=== PATIENT | male | born 1955 | race Asian ===

== ENCOUNTER 2017-08-18 18:06 | Inpatient (IN) | payer MEDICAID ==
[~2017-08-18] VITALS: Ht 154.9 cm; Wt 54.0 kg
[2017-08-18 18:09] VITALS: BP 124/69
[2017-08-18] MEDS ORDERED: FORM11 (18:09)
--- NOTE | 2017-08-18 18:14 | NUR ---
PT PRESENTS TO ER W/C/O SOB X2 DAYS. HX ASTHMA. DENIES N/V/D; SKIN IS PINK/WARM/DRY; AAOX4 WITH EVEN AND STEADY GAIT; LUNGS CLEAR BL; HR EVEN AND REGULAR; PT DENIES ANY FEVER, CP, OR COUGH AT THIS TIME; PATIENT STATES PAIN OF 0/10 AT THIS TIME; VSS; PATIENT POSITIONED FOR COMFORT; HOB ELEVATED; BEDRAILS UP X2; BED DOWN. ER MD MADE AWARE OF PT STATUS.
[2017-08-18] MEDS ORDERED: ALBUTEROL SULFATE/IPRATROPIU 3 ML SOL IH ONE (18:35)
[2017-08-18] MEDS ORDERED: AZITHROMYCIN 500 MG in DEXTROSE 5% 250 ML IV ONE (18:35)
[2017-08-18] MEDS ORDERED: cefTRIAXone 1,000 MG in DEXT 5% MINI-BAG PLUS 50 ML IV ONE (18:35)
[2017-08-18] MEDS ORDERED: methylPREDNISolone SS 125 MG/2 ML VIAL IVP ONE (18:40)
[2017-08-18] MEDS ORDERED: AZITHROMYCIN 500 MG INJ VIAL IV ONE (18:57)
[2017-08-18] MEDS ORDERED: cefTRIAXone 1,000 MG VIAL ONE (18:57)
[2017-08-18 18:58] LABS: APPEARANCE,URINE HAZY (CLEAR); BILIRUBIN,URINE NEGATIVE (NEGATIVE); BLOOD, URINE 3+ (NEGATIVE); COLOR,URINE YELLOW (YELLOW); LEUKOCYTE ESTERASE ,URINE 3+ (NEGATIVE); NITRITE, URINE NEGATIVE (NEGATIVE); UGLUCOSE NEGATIVE (NEGATIVE)
[2017-08-18] MEDS ORDERED: NACL 0.9% 1,000 ML IV ONE (19:05)
--- NOTE | 2017-08-18 19:05 | NUR ---
REPORT RECEIVED FROM CHRISTINA PURI
[2017-08-18] MEDS ORDERED: IBUPROFEN 600 MG TAB PO ONE (19:10)
[2017-08-18 19:16] LABS: HEMOGLOBIN 13.8 g/dL (12.0-18.0); MEAN CORPUSCULAR HEMOGLOBIN 26 pg (27-31); MEAN CORPUSCULAR HGB CONC 32 g/dL (33-37); MEAN CORPUSCULAR VOLUME 82 fL (80-94); PLATELET COUNT (AUTO) 147 K/uL (140-450); RED BLOOD CELL COUNT(AUTO) 5.23 MIL/uL (4.20-6.10); RED CELL DISTRIBUTION WIDTH 13.5 % (11.6-13.7)
[2017-08-18 19:17] LABS: RBC,URINE 3-10 (FEW) /HPF (0-5); WBC,URINE TOO MANY TO COUNT /HPF (0-5)
[2017-08-18] MEDS ORDERED: IBUPROFEN 600 MG TAB ONE (19:19)
[2017-08-18 19:21] LABS: ANION GAP 11.4 (8-16); CARBON DIOXIDE 26.1 mmol/L (21-32); CREATININE 1.1 mg/dL (0.7-1.3); POTASSIUM 3.5 mmol/L (3.5-5.1)
--- NOTE | 2017-08-18 19:22 | NUR ---
REPORT GIVEN TO CHRISTINA PALMA
[2017-08-18 19:27] LABS: ALBUMIN 3.3 g/dL (3.4-5.0); TOTAL BILIRUBIN 0.9 mg/dL (0.0-1.0)
[2017-08-18] MEDS ORDERED: NACL 0.9% 1,500 ML IV ONE (19:30)
[2017-08-18 19:31] LABS: LYMPHOCYTES % (MANUAL) 5 % (20-46); MONOCYTES % (MANUAL) 2 % (5-12)
--- NOTE | 2017-08-18 20:00 | NUR ---
Patient appears to be resting comfortably in bed. Vital Signs within normal limits. Respirations even and unlabored.
[2017-08-18] MEDS ORDERED: ALBUTEROL 0.083% 2.5 MG/3 ML NEBU INH PRN (20:30)
[2017-08-18] MEDS ORDERED: LORazepam 2 MG/ML VIAL IVP PRN (20:30)
[2017-08-18] MEDS ORDERED: NACL 0.9% 1,000 ML IV SCH (20:30)
[2017-08-18] MEDS ORDERED: methylPREDNISolone SS 40 MG in WATER STERILE 1 ML IV SCH (20:30)
[2017-08-18] MEDS ORDERED: ONDANSETRON 4 MG/2 ML VIAL IVP PRN (20:30)
[2017-08-18] MEDS ORDERED: IBUP-2213 PO (20:32)
[2017-08-18] MEDS ORDERED: AMLO10TA PO (20:32)
[2017-08-18] MEDS ORDERED: MEX2.5 (20:32)
--- NOTE | 2017-08-18 21:08 | NUR ---
Patient will be admitted to care of DR LYNN. Admited to MED SURG. Will go to room 106B. Belongings list completed. Report to CHRISTINA SPAIN.
--- NOTE | 2017-08-18 21:25 | NUR ---
PATIENT ADMITTED TO THE UNIT FROM ED VIA GURNEY. PT IS FOR 23 HOUR OBSERVATION. AAOX4. ON O2 AT 2 L/MIN VIA NC. NO DISTRESS NOTED. IV TO LEFT FA #20G PATENT AND INTACT. REDNESS TO LEFT ARM AND BACK D/T COINING. ORIENTED PT TO ROOM AND CALL LIGHT. PT'S AT BEDSIDE. DISCUSSED PLAN OF CARE. PT AND VERBALIZED UNDERSTANDING. CALL LIGHT WITHIN REACH. WILL CONTINUE TO MONITOR.
--- NOTE | 2017-08-18 21:26 | NUR ---
PATIENT HAS 900 ML IV FLUIDS SODIUM CHLORIDE 0.9% AT 100 ML/HR
[2017-08-18 21:30] VITALS: BP 122/71
--- NOTE | 2017-08-18 22:30 | NUR ---
TYLENOL 650 MG TAB GIVEN FOR LOWER ABDOMINAL PAIN.
[2017-08-18] MEDS: ACETAMINOPHEN 325 MG TAB PO PRN (22:39)
[2017-08-19] VITALS: BP 126/70
--- NOTE | 2017-08-19 00:35 | NUR ---
PT LYING IN BED COMFORTABLY. NO C/O PAIN. NO DISTRESS NOTED. CALL LIGHT WITHIN REACH.
--- NOTE | 2017-08-19 03:36 | NUR ---
PT SLEEPING. AT BEDSIDE. NO SIGNS OF DISTRESS. CALL LIGHT WITHIN REACH.
[2017-08-19] MEDS: ACETAMINOPHEN 325 MG TAB PO PRN (04:45)
[2017-08-19] MEDS ORDERED: methylPREDNISolone SS 125 MG/2 ML VIAL IVP SCH (05:00)
--- NOTE | 2017-08-19 06:15 | NUR ---
IV FLUIDS COMPLETED. NO NEW ORDER.
[2017-08-19 06:50] LABS: HEMATOCRIT 44.9 % (36-52); HEMOGLOBIN 14.5 g/dL (12.0-18.0); MEAN CORPUSCULAR HEMOGLOBIN 27 pg (27-31); MEAN CORPUSCULAR HGB CONC 32 g/dL (33-37); MEAN CORPUSCULAR VOLUME 84 fL (80-94); PLATELET COUNT (AUTO) 138 K/uL (140-450); RED BLOOD CELL COUNT(AUTO) 5.35 MIL/uL (4.20-6.10); RED CELL DISTRIBUTION WIDTH 13.9 % (11.6-13.7); WHITE BLOOD COUNT (AUTO) 25.6 K/uL (4.8-10.8)
[2017-08-19 07:05] LABS: CARBON DIOXIDE 25.8 mmol/L (21-32); CREATININE 1.2 mg/dL (0.7-1.3); POTASSIUM 3.8 mmol/L (3.5-5.1)
--- NOTE | 2017-08-19 07:20 | NUR ---
ENDORSED PT TO DAY SHIFT NURSE. PT IN STABLE CONDITION.
--- NOTE | 2017-08-19 07:22 | NUR ---
RECEIVED REPORT FROM BEDSIDE RN. PT RESTING IN BED. AAOX4. NO S/S OF ACUTE DISTRESS. PT DENIES PAIN. IV SITE PATENT AND INTACT. ON ROOM AIR. LEFT ARM AND BACK REDNESS NOTED. PLAN OF CARE DISCUSSED WITH PT. PT VERBALIZED UNDERSTANDING. CALL LIGHT WITHIN REACH. SAFETY MEASURES ENSURED. WILL CONTINUE TO MONITOR.
[2017-08-19 08:00] VITALS: BP 104/65
--- NOTE | 2017-08-19 08:55 | NUR ---
DR. LYNN IN TO SEE PT. PLAN OF CARE DISCUSSED. BLADDER SCAN DONE. 520 ML. PT STATES HE JUST VOIDED. PER DR. LYNN INSERT HARGROVE.
[2017-08-19] MEDS: ASPIRIN 81 MG TAB.CHEW PO SCH (08:58)
[2017-08-19] MEDS ORDERED: TAMSULOSIN 0.4 MG CAP PO SCH (09:00)
[2017-08-19] MEDS: ENOXAPARIN 40 MG/0.4 ML SYR SUBQ SCH (09:05)
[2017-08-19 09:23] LABS: LYMPHOCYTES % (MANUAL) 7 % (20-46); MONOCYTES % (MANUAL) 6 % (5-12)
--- NOTE | 2017-08-19 09:52 | NUR ---
PATIENT HAS BEEN SCREENED AND CATEGORIZED HIGH NUTRITION RISK. PATIENT WILL BE SEEN WITHIN 1-2 DAYS OF ADMISSION. 08/19/17-08/20/[address]
--- NOTE | 2017-08-19 10:28 | NUR ---
CALLED [facility] AND SPOKE WITH ABDIRAHMAN, [phone]. SHE SAID TO FIND OUT IF THIS PATIENT IS STABLE FOR TRANSFER TO CONTRACTED FACILITY. I SPOKE WITH DR. LYNN AND SHE WROTE THE ORDER FOR TRANSFER. FAXED INITIAL REVIEW TO [facility] [phone] I CALLED ABDIRAHMAN AND INFORMED HER OF ORDER FOR TRANSFER. SHE WILL CALL ME BACK WITH FACILITY. THE AUTH FOR [facility] TRANSPORT IS [id number].
--- NOTE | 2017-08-19 11:48 | NUR ---
PT RESTING IN BED. NO S/S OF ACUTE DISTRESS. PT DENIES PAIN. CALL LIGHT WITHIN REACH. SAFETY MEASURES ENSURED. WILL CONTINUE TO MONITOR.
[2017-08-19] MEDS: methylPREDNISolone SS 125 MG/2 ML VIAL IVP SCH ×2 (12:06→20:58)
--- NOTE | 2017-08-19 13:22 | NUR ---
08/19/17 RD INITIAL ASSESSMENT COMPLETED PLEASE REFER TO NUTRITION ASSESSMENT UNDER CARE ACTIVITY FOR ESTIMATED NUTRITIONAL NEEDS. 1. CONTINUE REGULAR DIET 2. RD TO FOLLOW UP WITHIN 2-3 DAYS; HIGH RISK MARIELA ANN RD
--- NOTE | 2017-08-19 15:46 | NUR ---
RECEIVED A CALL EARLIER FROM ABDIRAHMAN FROM [facility] [employer] SHE IS STILL WAITING FOR HER PHYSICIAN TO SPEAK WITH DR. LYNN. I CALL ABDIRAHMAN FROM [facility] AND GAVE HER THE PHONE NUMBER TO THE FLOOR IF THEY ARE GOING TO TRANSFER TIS PATIENT.
[2017-08-19 16:00] VITALS: BP 104/68
--- NOTE | 2017-08-19 16:11 | NUR ---
EARLIER I RECEIVED A CALL FROM ABDIRAHMAN FROM [facility]. SHE SAID TO HAVE DR. LYNN CALL DR. ANGEL AT [phone]. INFORMATION TEXTED TO DR. LYNN BY LUKE VASQUEZ CM DIRECTOR.
--- NOTE | 2017-08-19 17:07 | NUR ---
PT RESTING IN BED. NO S/S OF ACUTE DISTRESS. PT DENIES PAIN. CALL LIGHT WITHIN REACH. SAFETY MEASURES ENSURED. WILL CONTINUE TO MONITOR.
--- NOTE | 2017-08-19 19:06 | NUR ---
ENDORSED PLAN OF CARE TO NIGHT RN. PT REMAINS STABLE.
--- NOTE | 2017-08-19 19:07 | NUR ---
RECEIVED REPORT FROM DAY NURSE AT THE BEDSIDE, PT IN STABLE CONDITION. NO S/S OF DISTRESS NOTED. PT IS AAOX4, ON RA. IV TO L FA 20 G SL, PATENT AND INTACT. SKIN IS INTACT BUT REDNESS ON THE L ARM AND BACK FROM COINING PER PT. RESPIRATIONS ARE EVEN AND UNLABORED. BOWEL SOUNDS PRESENT. INITIAL ASSESSMENT COMPLETED. PLAN OF CARE DISCUSSED WITH PT, VERBALIZED UNDERSTANDING. ALL SAFETY PRECAUTIONS MET, CALL LIGHT WITHIN REACH, WILL CONTINUE TO MONITOR.
--- NOTE | 2017-08-19 20:58 | NUR ---
MEDICATION GIVEN WITH EDUCATION. PT VERBALIZED UNDERSTANDING. CALL LIGHT WITHIN REACH. SAFETY MEASURES ENSURED. WILL CONTINUE TO MONITOR.
[2017-08-20] VITALS: BP 108/65
--- NOTE | 2017-08-20 | NUR ---
PT VS STABLE, NO S/S OF DISTRESS NOTED. PT RESTING COMFORTABLY IN BED. ALL SAFETY PRECAUTIONS MET, WILL CONTINUE TO MONITOR
--- NOTE | 2017-08-20 04:30 | NUR ---
CATHETER CARE PROVIDED. HARGROVE PATENT AND INTACT. ALL SAFETY PRECAUTIONS MET, CALL LIGHT WITHIN REACH
[2017-08-20] MEDS: methylPREDNISolone SS 125 MG/2 ML VIAL IVP SCH (04:37)
--- NOTE | 2017-08-20 07:16 | NUR ---
GAVE REPORT TO AM NURSE AT THE BEDSIDE FOR CONTINUITY OF CARE. PT IN STABLE CONDITION. NO S/S OF DISTRESS NOTED
--- NOTE | 2017-08-20 07:18 | NUR ---
RECEIVED REPORT FROM NIGHT RN. PT RESTING IN BED. AAOX4, NO S/S OF ACUTE DISTRESS. PT DENIES PAIN. IV SITE PATENT AND INTACT. HARGROVE CATHETER PATENT. PLAN OF CARE DISCUSSED, PT VERBALIZED UNDERSTANDING. CALL LIGHT WITHIN REACH. SAFETY MEASURES ENSURED. WILL CONTINUE TO MONITOR.
[2017-08-20 08:04] VITALS: BP 123/66
[2017-08-20] MEDS ORDERED: TAMSULOSIN 0.4 MG CAP PO SCH (08:30)
[2017-08-20] MEDS: ASPIRIN 81 MG TAB.CHEW PO SCH (09:21)
[2017-08-20] MEDS: ENOXAPARIN 40 MG/0.4 ML SYR SUBQ SCH (09:22)
--- NOTE | 2017-08-20 09:29 | NUR ---
DUE MEDICATIONS GIVEN WITH TEACHING, PT VERBALIZED UNDERSTANDING OF MEDS, CALL LIGHT WITHIN REACH, WILL CONT TO MONITOR.
[2017-08-20] MEDS ORDERED: TAMS0.4C96 PO (09:47)
[2017-08-20] MEDS ORDERED: LEVO500T2 PO (09:47)
[2017-08-20] MEDS ORDERED: AZIT250T3 PO (09:47)
[2017-08-20] MEDS ORDERED: PRED10TA6 PO (09:52)
--- NOTE | 2017-08-20 11:01 | NUR ---
JOELLEN NOTE: CONCURRENT REVIEW FAXED TO [facility] [phone] # [phone] CM SONNA EXT [phone]. SPOKE WITH JOELLEN GARY OF [facility] PH# [phone] JOELLEN SONNA EXT [phone] AND SHE SAID THAT NO NEED TO TRANSFER PATIENT TO THEIR CONTRACTED HOSPITAL IF PATIENT WILL BE DISCHARGED TODAY. PER [facility] JOELLEN GARY, IF PATIENT WILL NEED HOME HEALTH, TO CONTACT ANY OF THE FOLLOWING HOME HEALTHS THEY ARE CONTRACTED WITH: *[facility], ATTN: LYRIC, PH# [phone] FAX# [phone] *[facility], ATTN: SOFIA, PH# [phone] FAX# [phone] * [facility], ATTN: YOSEPH, PH# [phone] FAX# [phone]
--- NOTE | 2017-08-20 11:14 | NUR ---
HARGROVE CATH DISCONTINUED, WILL MONITOR FOR URINE OUTPUT.
[2017-08-20 11:27] VITALS: BP 123/66
--- NOTE | 2017-08-20 13:56 | NUR ---
PT ABLE TO VOID, PT DENIES ANY PAIN DURING VOID, 300ML VOIDED.
--- NOTE | 2017-08-20 14:16 | NUR ---
PT CLEARED FOR DISCHARGE. DISCHARGE INSTRUCTIONS PROVIDED. PT VERBALIZED UNDERSTANDING. IV TAKEN OUT TIP INTACT. WRISTBANDS CUT, ALL PAPERWORK SIGNED. PRESCRIPTION GIVEN TO PT. NO S/S OF ACUTE DISTRESS. PT DENIES PAIN. PT'S AT BEDSIDE. PT AMBULATED TO [facility].
[2017-08-21] MEDS ORDERED: methylPREDNISolone SS 125 MG/2 ML VIAL IVP SCH (09:00)
== END 2017-08-20 14:24 | disposition home or self-care (01) | DRG 720 ==
LOC: MED 18:06 → MTU 20:36 → OBSVTOIN 08-19 09:48
PROVIDERS: ADMIT Hospitalist; ATTEND Hospitalist
DX: A41.50 Gram-negative sepsis, unspecified (principal); E44.1 Mild protein-calorie malnutrition; I10 Essential (primary) hypertension; N40.1 Benign prostatic hyperplasia with lower urinary tract symptoms; R33.8 Other retention of urine; J45.901 Unspecified asthma with (acute) exacerbation; N39.0 Urinary tract infection, site not specified; B96.89 Other specified bacterial agents as the cause of diseases classified elsewhere; E88.09 Other disorders of plasma-protein metabolism, not elsewhere classified; Z68.22 Body mass index [BMI] 22.0-22.9, adult; Z79.899 Other long term (current) drug therapy
CPT/HCPCS: 96365; 96367; 96375; 99291; G0378; 36415; 36600; 71010; 80048; 80053; 81001; 82803; 83605; 84484; 85025; 87040; 87077; 87081; 87086; 87186; 93005; 94640; J0456; J0696; J1650; J2930; J7030; J7060; J7613; J7620; Q0092

== ENCOUNTER 2018-12-26 10:07 | Emergency (ER) | payer MEDICAID ==
[~2018-12-26] VITALS: Ht 162.6 cm; Wt 57.2 kg
[~2018-12-26 10:07] MED LIST: AMLO10TA PO; AZIT250T3 PO; FORM11; IBUP-2213 PO; LEVO500T2 PO; MEX2.5; PRED10TA6 PO; TAMS0.4C96 PO
[2018-12-26 10:25] VITALS: BP 133/70
[2018-12-26] MEDS ORDERED: ALBUTEROL SULFATE/IPRATROPIU 3 ML SOL IH ONE (10:25)
--- NOTE | 2018-12-26 10:31 | NUR ---
CAME TO ED WITH C/O SOB. INSPIRATORY AND EXPIRATORY WHEEZING TO BILATERAL UPPER LOBES. TACHYCARDIC. NON-PRODUCTIVE COUGH. PLACED ON 2L VIA NASAL CANNULA. MD NOTIFIED. WILL CONTINUE TO MONITOR.
--- NOTE | 2018-12-26 11:08 | NUR ---
Patient being evaluated by physician at bedside.
[2018-12-26 11:27] VITALS: BP 133/70
--- NOTE | 2018-12-26 11:28 | NUR ---
Patient discharged with v/s stable. Written and verbal after care instructions given and explained. Patient alert, oriented and verbalized understanding of instructions. Ambulatory with steady gait. All questions addressed prior to discharge. ID band removed. Patient advised to follow up with PMD. Rx of Predisone given. Patient educated on indication of medication including possible reaction and side effects. Opportunity to ask questions provided and answered.
== END 2018-12-26 11:28 | disposition home or self-care (01) ==
LOC: MED 10:07
DX: J45.901 Unspecified asthma with (acute) exacerbation (principal); I10 Essential (primary) hypertension; Z79.899 Other long term (current) drug therapy
CPT/HCPCS: 94640; 99283; J7620

== ENCOUNTER 2018-12-27 19:35 | Emergency (ER) | payer MEDICAID ==
[~2018-12-27] VITALS: Ht 162.6 cm; Wt 56.0 kg
[2018-12-27 19:46] VITALS: BP 122/87
--- NOTE | 2018-12-27 19:59 | NUR ---
WAITNG IN CHAIR E TILL THERE IS ASN OPEN BED. Addendum: 12/27/18 at 1959 by SPENCER WAITNG IN CHAIR E TILL THERE IS AN OPEN BED
--- NOTE | 2018-12-27 20:24 | NUR ---
PT AMBULED TO BED 10 WITH VSS.
--- NOTE | 2018-12-27 20:31 | NUR ---
EKG PERFORMED AT BEDSIDE
[2018-12-27] MEDS ORDERED: ALBUTEROL 0.083% 2.5 MG/3 ML NEBU INH ONE ×2 (20:35→23:35)
[2018-12-27] MEDS ORDERED: ALBUTEROL SULFATE/IPRATROPIU 3 ML SOL IH ONE ×2 (20:35→23:35)
--- NOTE | 2018-12-27 20:40 | NUR ---
PT BIB SELF FOR SOB. PT RR LABORED, TACHYPENEA WITH RR OF 30, SHALLOW BREATHING, USE OF ACCESSORY MUSCLES, WHEEZES ASCULTATED THROUGHOUT. PT PUT ON 3L O2 VIA NASAL CANNULA, O2 SAT INCREASED FROM 87% TO 95%. RT CALLED FOR BREATHING TX. PT HAS PRODUCTIVE COUGH. PT DENIES CP, N/V/D. PT REPORTS ACHY PAIN IN L LEG AT 5/10 WHEN HE COUGHS. PT FEBRILE AT THIS TIME AT 103.2, COOLING MEASURES TAKEN. ER MD TO SEE PT. WILL CONTINUE TO MONITOR. MEDHX:TB, ASTHMA, HTN
[2018-12-27 20:42] LABS: BASOPHILS % (AUTO) 0.2 % (0.0-2.0); HEMATOCRIT 43.2 % (36-52); HEMOGLOBIN 14.1 g/dL (12.0-18.0); LYMPHOCYTES # (AUTO) 1.1 K/uL (2.0-11.5); LYMPHOCYTES % (AUTO) 8.3 % (20.5-51.1); MEAN CORPUSCULAR HEMOGLOBIN 27 pg (27-31); MEAN CORPUSCULAR HGB CONC 33 g/dL (33-37); MEAN CORPUSCULAR VOLUME 81.8 fL (80-94); MONOCYTES # (AUTO) 0.9 K/uL (0.8-1.0); MONOCYTES % (AUTO) 6.3 % (1.7-9.3); NEUTROPHILS # (AUTO) 11.6 K/uL (1.8-7.7); NEUTROPHILS % (AUTO) 85.2 % (42.2-75.2); PLATELET COUNT (AUTO) 216 K/uL (140-450); RED BLOOD CELL COUNT(AUTO) 5.28 MIL/uL (4.20-6.10); RED CELL DISTRIBUTION WIDTH 15.4 % (11.6-13.7); WHITE BLOOD COUNT (AUTO) 13.6 K/uL (4.8-10.8)
[2018-12-27] MEDS ORDERED: ACETAMINOPHEN EXTRA STRENGTH 500 MG TAB PO ONE (20:50)
[2018-12-27] MEDS ORDERED: IBUPROFEN 400 MG TAB PO ONE (20:50)
[2018-12-27 20:52] LABS: ANION GAP 10.9 (8-16); CARBON DIOXIDE 29.3 mmol/L (21-32); CREATININE 1.1 mg/dL (0.7-1.3); POTASSIUM 4.2 mmol/L (3.5-5.1)
--- NOTE | 2018-12-27 20:57 | NUR ---
RT AT BEDSIDE AT THIS TIME
[2018-12-27 20:59] LABS: ALBUMIN 3.1 g/dL (3.4-5.0); TOTAL BILIRUBIN 0.5 mg/dL (0.0-1.0)
--- NOTE | 2018-12-27 22:01 | NUR ---
PT RESTING IN BED WITH EYES OPEN. VSS. PT DENIES PAIN AT THIS TIME. PT O2 SAT AT 96% ON 3L VIA NASSAL CANNULA. RR RATE SYMMETRICAL AND NON-LABORED. NO USE OF ACCESSORY MUSCLES WITH RESPIRATIONS. ASCULTATED EXPIRATORY WHEEZES THROUGHOUT. ER MD NOTIFIED
--- NOTE | 2018-12-27 23:30 | NUR ---
PT RESTING IN BED COMFORTABLY. VSS. TURNED 02 DOWN TO 2L, PT O2 SAT AT 97%. PT HAS EXPIRATORY WHEEZES THROUGHOUT, AND COMMUNICATED THAT HE WOULD LIKE ANOTHER BREATHING TREATMENT.
[2018-12-28] MEDS ORDERED: SPIMDI INH (00:55)
[2018-12-28] MEDS ORDERED: FLUT1POW3 IH (01:00)
[2018-12-28] MEDS ORDERED: ALBU0.0912 IH (01:00)
[2018-12-28] MEDS ORDERED: TAMS0.4C96 PO (01:00)
--- NOTE | 2018-12-28 02:11 | NUR ---
PT RESTING IN BED COMFORTABLY WITH EYES CLOSED. VSS. PT STILL HAS WHEEZES THROUGHOUT. RR SYMMETRICAL AND NON-LABORED, O2 SAT AT 95% ON 3L VIA NASAL CANNULA. WILL CONTINUE TO MONITOR.
--- NOTE | 2018-12-28 02:16 | NUR ---
PER [facility], PT TO TRANSFER, NO LOCATION AT THIS TIME
--- NOTE | 2018-12-28 04:46 | NUR ---
GAVE REPORT TO CHARGE NURSE ANN AT [facility]. PER ANN PT IS GONG TO ROOM 204 BED 1
--- NOTE | 2018-12-28 05:07 | NUR ---
PT INFORMED THAT AMBULANCE WILL BE HERE WITHIN THE HOUR TO TAKE HIM TO [facility]. PT DENIES PAIN AT THIS TIME. VSS. WILL CONTINUE TO MONITOR.
[2018-12-28 05:38] VITALS: BP 104/57
--- NOTE | 2018-12-28 05:38 | NUR ---
Patient to be transferred to [facility]. Is being transferred due to INSURANCE. Receiving facility has accepting physician and available space. ER physician has signed transfer form. Patient has agreed to transfer and signed form. Patient belongings inventoried and will be sent with patient. Copy of nursing notes, lab reports, EKG, Physicians Orders and X-rays to be sent with patient. Report called to ANN CHARGE NURSE at receiving facility. [facility] ambulance service has been called for transfer. ETA is 40MIN.
== END 2018-12-28 05:38 | disposition short-term general hospital (02) ==
LOC: MED 19:35
DX: J45.901 Unspecified asthma with (acute) exacerbation (principal); I10 Essential (primary) hypertension; Z79.899 Other long term (current) drug therapy
CPT/HCPCS: 36415; 71045; 80053; 83880; 84484; 85025; 93005; 94640; 99285; J7613; J7620; Q0092